=== PATIENT | female | born 1955 | race Caucasian/White ===

== ENCOUNTER 2016-11-09 16:02 | Emergency (ER) | payer OTHER ==
[~2016-11-09] VITALS: Ht 152.4 cm; Wt 96.0 kg
[~2016-11-09 16:02] MED LIST: ALBUAER3 INH; CHOL1CAP34 PO; COLL30T TOPICAL; ESOM1CAP16 PO; FURO20TA PO; LYRI150C PO; MOME0.1C23 TOPICAL; NYST10PO TOPICAL; OXYB5TAB10 PO; OXYC1TAB36 PO; OXYM30TA4 PO; PRAM1TAB PO; SIMV20TA PO; TOPI1TAB32 PO; [UNRECOGNIZED DRUG - CODE] PO
[2016-11-09 16:06] VITALS: BP 118/82; PULSE 69; RESP 20; TEMP 97.9; O2SAT 99
[2016-11-09 17:19] LABS: BLOOD, URINE SMALL (NEG); GLUCOSE,URINE NEG (NEG); KETONE, URINE NEG (NEG); NITRITE,URINE NEG (NEG); PH, URINE 5.5 (5.0-8.5)
[2016-11-09 17:38] LABS: CALCIUM OXALATE CRYSTALS,URINE MOD /hpf; COMMENT (UR) CULT NOT INDICATED; CULTURE IF INDICATED CULT NOT INDICATED; METHOD OF COLLECTION CLEAN CATCH; RBC, URINE 0-3 /hpf (0-3); URINE COLOR YELLOW (YELLW/STRAW)
[2016-11-09 17:39] LABS: MUCUS URINE RARE /lpf (OCC)
[2016-11-09] MEDS ORDERED: SODIUM CHLOR 0.9% 1000 ML INJ 1,000 ML IV SCH (17:59)
[2016-11-09] MEDS ORDERED: HYDROmorphone HCL PF 1 MG/ML VIAL IVS ONE (18:00)
[2016-11-09] MEDS ORDERED: ONDANSETRON HCL 4 MG/2 ML VIAL IVP ONE (18:00)
[2016-11-09] MEDS ORDERED: SODIUM CHLORIDE 0.9% FLUSH 10 ML FLUSH IV FLUSH PRN (18:00)
--- NOTE | 2016-11-09 18:03 | PD ---
HPI Chief Complaint: Abdominal Pain Time Seen by Provider: 17:59 Travel History International Travel<30 days: No Contact w/Intl Traveler<30days: No Traveled to known affect area: No History of Present Illness HPI 61-year-old female with history of asthma, chronic back pains, presents to the ER today because she has been nauseous, having diarrhea, and having abdominal pains for the past 3-4 days. Pain is currently rated an 8 out 10. She has been having chills but denies any fevers. She does not know any sick contacts. Modifying Factors: None Associated Signs & Symptoms: Nausea, diarrhea, abdominal pains, chills Risk Factors: None PFSH Past Medical History Respiratory: Yes (ASTHMA) ?: Not Social History Tobacco Use: No Allergies-Medications (Allergen,Severity, Reaction): Coded Allergies: Contrast Media (Verified Allergy, Severe, can't breath, 11/09/16) Erythromycin (Verified Allergy, Severe, 11/09/16) Lidocaine (Verified Allergy, Severe, can't breath, 11/09/16) Nonsteroidal Anti-Inflammatory Agts (Verified Allergy, Severe, can't breath, sick to stomach, 11/09/16) Novocain (Verified Allergy, Severe, can't breath, 11/09/16) Penicillin (Verified Allergy, Severe, 11/09/16) Sulfa (Verified Allergy, Severe, 11/09/16) Magnesium Sulfate (Verified Allergy, Intermediate, 11/09/16) Xanax (Verified Allergy, Unknown, can't eat, sleep, 11/09/16) Neurontin (Verified Adverse Reaction, Intermediate, GI UPSET, 11/09/16) Reported Meds & Prescriptions Reported Meds & Active Scripts Active Oxycodone-Acetaminophen 10-325 mg Tab 1 Tab PO Q8H PRN Opana ER (Crush Resistant) (Oxymorphone HCl) 30 Mg Tab 30 Mg PO Q12HR Proair Hfa 8.5 GM Inh (Albuterol Sulfate) 90 Mcg/Act Aer 2 Puff INH Q6H PRN 108 mcg/actuation Santyl Topical (Collagenase) 250 Unit/Gm Oint 1 Applic TOPICAL DAILY Mometasone Topical (Mometasone Furoate) 0.1 % Cream 1 Applic TOPICAL DAILY Nystatin Foreign (Nystatin (Topical)) 1 Pow Pow 1 Applic TOPICAL TID Ditropan (Oxybutynin Chloride) 5 Mg Tab 5 Mg PO Q12HR Topiramate 100 Mg Tablet 1 Tab PO DAILY Naratriptan (Naratriptan HCl) 2.5 Mg Tablet 1 Tab PO Q4HR Vitamin D3 (Cholecalciferol) 50,000 Unit Cap 50,000 Units PO Q7D Furosemide 20 Mg Tab 20 Mg PO DAILY Simvastatin 20 Mg Tab 20 Mg PO DAILY Esomeprazole DR 40 Mg Capdr 40 Mg PO DAILY Pramipexole (Pramipexole Dihydrochloride) 1 Mg Tab 1 Mg PO DAILY Lyrica (Pregabalin) 150 Mg Cap 150 Mg PO TID Review of Systems Except as stated in HPI: all other systems reviewed are Neg Physical Exam Narrative GENERAL: Well-developed middle age white female patient currently mild distress. Awake and oriented 3. SKIN: Focused skin assessment warm/dry. HEAD: Atraumatic. Normocephalic. EYES: Pupils equal and round. No scleral icterus. No injection or drainage. ENT: No nasal bleeding or discharge. Mucous membranes pink and moist. NECK: Trachea midline. No JVD. CARDIOVASCULAR: Regular rate and rhythm. No murmur appreciated. RESPIRATORY: No accessory muscle use. Clear to auscultation. Breath sounds equal bilaterally. GASTROINTESTINAL: Abdomen soft, left upper quadrant tenderness without guarding or rebound, nondistended. Hepatic and splenic margins not palpable. MUSCULOSKELETAL: No obvious deformities. No clubbing. No cyanosis. No edema. NEUROLOGICAL: Awake and alert. No obvious cranial nerve deficits. Motor grossly within normal limits. Normal speech. PSYCHIATRIC: Appropriate mood and affect; insight and judgment normal. Data Data Last Documented VS Vital Signs Date Time Temp Pulse Resp B/P Pulse Ox O2 Delivery O2 Flow Rate FiO2 11/09/16 18:15 74 16 140/65 97 11/09/16 16:06 97.9 Orders Urinalysis - C+S If Indicated (11/09/16 16:40) Complete Blood Count With Diff (11/09/16 17:59) Comprehensive Metabolic Panel (11/09/16 17:59) Lipase (11/09/16 17:59) Iv Access Insert/Monitor (11/09/16 17:59) Ecg Monitoring (11/09/16 17:59) Oximetry (11/09/16 17:59) Ondansetron Inj (Zofran Inj) (11/09/16 18:00) Sodium Chlor 0.9% 1000 Ml Inj (Ns 1000 M (11/09/16 17:59) Sodium Chloride 0.9% Flush (Ns Flush) (11/09/16 18:00) Hydromorphone Pf Inj (Dilaudid Pf Inj) (11/09/16 18:00) Ct Abd/Pel W/O Iv Contrast (11/09/16 18:06) Labs Laboratory Tests Test 11/09/16 11/09/16 16:30 18:00 Urine Collection Type CLEAN CATCH Urine Color YELLOW Urine Turbidity CLEAR Urine pH 5.5 Urine Specific [place] 1.025 Urine Protein NEG mg/dL Urine Glucose (UA) NEG mg/dL Urine Ketones NEG mg/dL Urine Occult Blood SMALL Urine Nitrite NEG Urine Bilirubin NEG Urine Leukocyte Esterase NEG Urine RBC 0-3 /hpf Urine Calcium Oxalate Crystals MOD /hpf Urine Mucus RARE /lpf Microscopic Urinalysis Comment CULT NOT INDICATED White Blood Count 6.5 TH/MM3 Red Blood Count 4.63 MIL/MM3 Hemoglobin 13.6 GM/DL Hematocrit 40.5 % Mean Corpuscular Volume 87.5 FL Mean Corpuscular Hemoglobin 29.4 PG Mean Corpuscular Hemoglobin 33.6 % Concent Red Cell Distribution Width 12.8 % Platelet Count 279 TH/MM3 Mean Platelet Volume 8.0 FL Neutrophils (%) (Auto) 59.3 % Lymphocytes (%) (Auto) 30.6 % Monocytes (%) (Auto) 6.3 % Eosinophils (%) (Auto) 3.3 % Basophils (%) (Auto) 0.5 % Neutrophils # (Auto) 3.9 TH/MM3 Lymphocytes # (Auto) 2.0 TH/MM3 Monocytes # (Auto) 0.4 TH/MM3 Eosinophils # (Auto) 0.2 TH/MM3 Basophils # (Auto) 0.0 TH/MM3 CBC Comment DIFF FINAL Differential Comment Sodium Level 143 MEQ/L Potassium Level 4.6 MEQ/L Chloride Level 109 MEQ/L Carbon Dioxide Level 27.7 MEQ/L Anion Gap 6 MEQ/L Blood Urea Nitrogen 10 MG/DL Creatinine 0.82 MG/DL Estimat Glomerular Filtration 71 ML/MIN Rate Random Glucose 87 MG/DL Calcium Level 9.0 MG/DL Total Bilirubin 0.4 MG/DL Aspartate Amino Transf 34 U/L (AST/SGOT) Alanine Aminotransferase 55 U/L (ALT/SGPT) Alkaline Phosphatase 97 U/L Total Protein 7.7 GM/DL Albumin 3.7 GM/DL Lipase 138 U/L MDM Medical Decision Making Medical Screen Exam Complete: Yes Emergency Medical Condition: Yes Medical Record Reviewed: Yes Interpretation(s) Laboratory Tests Test 11/09/16 11/09/16 16:30 18:00 Urine Occult Blood SMALL (NEG) Urine Calcium Oxalate Crystals MOD /hpf (NONE) Chloride Level 109 MEQ/L (98-107) Estimat Glomerular Filtration 71 ML/MIN (>89) Rate Alanine Aminotransferase 55 U/L (10-53) (ALT/SGPT) Differential Diagnosis Left upper quadrant abdominal pain with nausea and vomitinggastritis versus gastroenteritis versus dehydration versus metabolic issues versus pancreatitis versus other acute intra-abdominal processes Narrative Course Lab work and CAT scans ordered. IV fluids, nausea medications, pain medications given in the ER. Physician Communication Physician Communication Case is signed out to Dr. Downing at 7 PM awaiting CAT scan results. Disposition based on CAT scan. Diagnosis Primary Impression: Abdominal pain Condition: Stable Teri Matson MD Nov 09, 2016 18:03
[2016-11-09 18:15] VITALS: BP 140/65; PULSE 74; RESP 16; O2SAT 97
[2016-11-09 18:19] LABS: AUTOMATED NEUTROPHIL # 3.9 TH/MM3 (1.8-7.7); BASOPHIL % 0.5 % (0.0-2.0); EOSINOPHIL # 0.2 TH/MM3 (0-0.4); EOSINOPHIL % 3.3 % (0.0-4.0); HEMATOCRIT 40.5 % (35.0-46.0); HEMO FLAGS DIFF FINAL; LYMPH % 30.6 % (9.0-44.0); MEAN CELL VOLUME 87.5 FL (80.0-100.0); MEAN CORPUSCULAR HEMOGLOBIN 29.4 PG (27.0-34.0); MEAN CORPUSCULAR HGB CONC 33.6 % (32.0-36.0); MONO % 6.3 % (0.0-8.0); NEUT % 59.3 % (16.0-70.0); PLATELET COUNT 279 TH/MM3 (150-450); RED BLOOD COUNT 4.63 MIL/MM3 (4.00-5.30); RED CELL DISTRIBUTION WIDTH 12.8 % (11.6-17.2); WHITE BLOOD COUNT 6.5 TH/MM3 (4.0-11.0)
[2016-11-09 18:26] LABS: CHLORIDE 109 MEQ/L (98-107); POTASSIUM 4.6 MEQ/L (3.5-5.1); SODIUM (NA) 143 MEQ/L (136-145)
[2016-11-09 18:30] LABS: ANION GAP 6 MEQ/L (5-15); BICARBONATE 27.7 MEQ/L (21.0-32.0)
[2016-11-09 18:31] LABS: BLOOD UREA NITROGEN 10 MG/DL (7-18)
[2016-11-09 18:33] LABS: ALT (GPT) 55 U/L (10-53); AST (GOT) 34 U/L (15-37); GLOMERULAR FILTRATION RATE 71 ML/MIN (>89)
[2016-11-09 18:35] LABS: TOTAL BILIRUBIN ADULT 0.4 MG/DL (0.2-1.0)
[2016-11-09 18:36] LABS: ALKALINE PHOSPHATASE 97 U/L (45-117)
[2016-11-09 19:05] VITALS: BP 112/57; PULSE 61; RESP 18; O2SAT 96
[2016-11-09] MEDS ORDERED: DICY10 PO (19:43)
[2016-11-09] MEDS ORDERED: LOPE2CAP PO (19:43)
[2016-11-09] MEDS ORDERED: ZOFR4TAB3 SL (19:43)
--- NOTE | 2016-11-09 19:43 | PD ---
Data Data Last Documented VS Vital Signs Date Time Temp Pulse Resp B/P Pulse Ox O2 Delivery O2 Flow Rate FiO2 11/09/16 18:15 74 16 140/65 97 11/09/16 16:06 97.9 Orders Urinalysis - C+S If Indicated (11/09/16 16:40) Complete Blood Count With Diff (11/09/16 17:59) Comprehensive Metabolic Panel (11/09/16 17:59) Lipase (11/09/16 17:59) Iv Access Insert/Monitor (11/09/16 17:59) Ecg Monitoring (11/09/16 17:59) Oximetry (11/09/16 17:59) Ondansetron Inj (Zofran Inj) (11/09/16 18:00) Sodium Chlor 0.9% 1000 Ml Inj (Ns 1000 M (11/09/16 17:59) Sodium Chloride 0.9% Flush (Ns Flush) (11/09/16 18:00) Hydromorphone Pf Inj (Dilaudid Pf Inj) (11/09/16 18:00) Ct Abd/Pel W/O Iv Contrast (11/09/16 18:06) Labs Laboratory Tests Test 11/09/16 11/09/16 16:30 18:00 Urine Collection Type CLEAN CATCH Urine Color YELLOW Urine Turbidity CLEAR Urine pH 5.5 Urine Specific [employer] 1.025 Urine Protein NEG mg/dL Urine Glucose (UA) NEG mg/dL Urine Ketones NEG mg/dL Urine Occult Blood SMALL Urine Nitrite NEG Urine Bilirubin NEG Urine Leukocyte Esterase NEG Urine RBC 0-3 /hpf Urine Calcium Oxalate Crystals MOD /hpf Urine Mucus RARE /lpf Microscopic Urinalysis Comment CULT NOT INDICATED White Blood Count 6.5 TH/MM3 Red Blood Count 4.63 MIL/MM3 Hemoglobin 13.6 GM/DL Hematocrit 40.5 % Mean Corpuscular Volume 87.5 FL Mean Corpuscular Hemoglobin 29.4 PG Mean Corpuscular Hemoglobin 33.6 % Concent Red Cell Distribution Width 12.8 % Platelet Count 279 TH/MM3 Mean Platelet Volume 8.0 FL Neutrophils (%) (Auto) 59.3 % Lymphocytes (%) (Auto) 30.6 % Monocytes (%) (Auto) 6.3 % Eosinophils (%) (Auto) 3.3 % Basophils (%) (Auto) 0.5 % Neutrophils # (Auto) 3.9 TH/MM3 Lymphocytes # (Auto) 2.0 TH/MM3 Monocytes # (Auto) 0.4 TH/MM3 Eosinophils # (Auto) 0.2 TH/MM3 Basophils # (Auto) 0.0 TH/MM3 CBC Comment DIFF FINAL Differential Comment Sodium Level 143 MEQ/L Potassium Level 4.6 MEQ/L Chloride Level 109 MEQ/L Carbon Dioxide Level 27.7 MEQ/L Anion Gap 6 MEQ/L Blood Urea Nitrogen 10 MG/DL Creatinine 0.82 MG/DL Estimat Glomerular Filtration 71 ML/MIN Rate Random Glucose 87 MG/DL Calcium Level 9.0 MG/DL Total Bilirubin 0.4 MG/DL Aspartate Amino Transf 34 U/L (AST/SGOT) Alanine Aminotransferase 55 U/L (ALT/SGPT) Alkaline Phosphatase 97 U/L Total Protein 7.7 GM/DL Albumin 3.7 GM/DL Lipase 138 U/L [facility] Supervised Visit with DANNIE: Yes Narrative Course 61-year-old woman with nausea vomiting and abdominal pain for the past 3-4 days of left-sided tenderness associated with some loose watery stools. She was initially evaluated by Dr. Joseph, tunneled to follow-up results of CT imaging. Labs show normal white count CMP is unremarkable Lipase is normal CT abdomen and pelvis: Tiny right lower lobe nodule, recommend follow-up CT in 6 months. Diagnosis Primary Impression: Abdominal pain Additional Impression: Lung nodule < 6cm on CT Additional Instruction: Zofran as needed for nausea or vomiting. Take loperamide as needed for diarrhea. Use Bentyl as needed for abdominal pain. Follow-up with your primary doctor in the next 2-4 days. You need a follow-up CT in 6 months to follow-up on the lung nodule in your right lower lobe. Return to the emergency department for any worsening abdominal pain, high fevers , bloody diarrhea, or any other new or worsening symptoms. Med/Other Pt SpecificInfo: Prescription(s) given Scripts Ondansetron Odt (Zofran Odt)4 Mg Tab4 Mg SL Q8HR PRN (Nausea/Vomiting) #15 TAB May substitute non-ODT form. Prov:Pankaj Downing MD 11/09/16 Loperamide 2 Mg Cap2 Mg PO DIRECTED PRN (DIARRHEA) #8 CAP Ref 0 One capsule after each loose stool. Not to exceed 8 capsules per day. Prov:Pankaj Downing MD 11/09/16 Dicyclomine (Bentyl)10 Mg Cap10 Mg PO TID PRN (ABDOMINAL CRAMPING) #12 CAP Ref 0 Prov:Pankaj Downing MD 11/09/16 Disposition: 01 DISCHARGE HOME Condition: Stable Pankaj Downing MD Nov 09, 2016 19:43
--- NOTE | 2016-11-09 19:51 | RADRPT ---
EXAM DATE/TIME: 11/09/2016 19:05 [place] COMPARISON: No previous studies available for comparison. INDICATIONS : Non specific abdominal pain with nausea and diarrhea. ORAL CONTRAST: No oral contrast ingested. RADIATION DOSE: 22.12 CTDIvol (mGy) MEDICAL HISTORY : None SURGICAL HISTORY : Hysterectomy. ENCOUNTER: Initial ACUITY: 2 days PAIN SCALE: 5/10 LOCATION: abdomen TECHNIQUE: Volumetric scanning of the abdomen and pelvis was performed. Using automated exposure control and ad justment of the mA and/or kV according to patient size, radiation dose was kept as low as reasonably achievable to obtain optimal diagnostic quality images. DICOM format image data is available electro nically for review and comparison. FINDINGS: CT Abdomen: The liver, spleen, pancreas, kidneys, adrenals are unremarkable. There is no evidence for any appreciable pathological adenopathy, free fluid, or bowel obstruction. Approximate 4 mm right l ower lobe nodule is present without demonstrable calcifications. CT pelvis: There is no evidence for mass, abscess formation, or any significant adenopathy within the pelvis. There are degenerative changes and possible bulging discs in the lower lumbosacral spine not adequately characterized in addition to lumbar scoliosis. There are scattered diverticuli mainly in the sigmoid colon without definite signs of diverticulitis. CONCLUSION: Tiny right lower lobe nodule, noncontrast chest CT is suggested in 6 months as a cons ervative follow up. Arnol Hanson MD on November 09, 2016 at 19:47 Board Certified Radiologist. This report was verified electronically.
[2016-11-09 20:10] VITALS: BP 122/74; PULSE 69; RESP 18; O2SAT 96
[2016-11-09 20:55] VITALS: BP 125/66
[2016-11-10] MEDS ORDERED: CHOL20005 PO (13:52)
[2016-11-10] MEDS ORDERED: DENO60P SQ (13:55)
[2016-11-10] MEDS ORDERED: OXYC1TAB36 PO (14:06)
[2016-11-10] MEDS ORDERED: OXYM30TA4 PO (14:06)
== END 2016-11-09 20:45 | disposition home or self-care (01) ==
LOC: PHED 16:02
DX: R10.12 Left upper quadrant pain (principal); R91.1 Solitary pulmonary nodule; R11.0 Nausea; R19.7 Diarrhea, unspecified; R68.83 Chills (without fever); Z87.09 Personal history of other diseases of the respiratory system; Z87.39 Personal history of other diseases of the musculoskeletal system and connective tissue
CPT/HCPCS: 74176; 80053; 81001; 83690; 85025; 96361; 96374; 99285; J1170; J2405; J7030